=== PATIENT | male | born 1950 | race Caucasian/White ===

== ENCOUNTER 2017-02-04 08:59 | Emergency (ER) | payer OTHER ==
[~2017-02-04] VITALS: Ht 172.7 cm; Wt 74.8 kg
[2017-02-04 09:03] VITALS: BP 185/97; PULSE 79; RESP 18; TEMP 98.4; O2SAT 100
--- NOTE | 2017-02-04 09:21 | PD ---
HPI Chief Complaint: Fall Time Seen by Provider: 09:10 Travel History International Travel<30 days: No Contact w/Intl Traveler<30days: No Traveled to known affect area: No History of Present Illness HPI Patient is a 67-year-old male who presents to emergency room after he fell onto the floor 4-5 days ago. Reports that he picked up his dog and reports that he ended up loosing his balance. Patient reports that when he fell, he fell outside landing onto cement stairs. Patient fell onto the cement stairs in the left side of his face and also landed on his left elbow and left thigh. Patient reports that he is currently not on any anticoagulants. Patient denies loss of consciousness. Patient denies any headaches or dizziness at this time. Patient denies any neck pain. Reports that he has been keeping his wounds clean and has been applying bacitracin to his wounds, reports concerns as he has noticed increased weeping to his left elbow. Patient has been ambulating with normal gait, reports that his left leg feels much better, reports no pain with ambulation. Reports only concerns for his left elbow this time. PFSH Past Medical History Hypertension: Yes (NOT ON MEDS ) Tetanus Vaccination: Unknown Past Surgical History Surgical History: Unable to Obtain Social History Alcohol Use: Yes (12 [employer] DAILY) Tobacco Use: No Allergies-Medications (Allergen,Severity, Reaction): Coded Allergies: Darvon (Verified Allergy, Unknown, 02/04/17) Uncoded Allergies: ANTIHISTAMINE (Allergy, Severe, TACHYCARDIA, 02/04/17) Reported Meds & Prescriptions Reported Meds & Active Scripts Active Ibuprofen 600 Mg Tab 600 Mg PO Q6H PRN Bactrim DS (Sulfamethoxazole-Trimethoprim) 800-160 Mg Tab 1 Tab PO BID 10 Days Keflex (Cephalexin) 500 Mg Cap 500 Mg PO Q6H 10 Days Percocet (Oxycodone-Acetaminophen) 5-325 mg Tab 1 Tab PO Q6H PRN Review of Systems General / Constitutional: No: Fever Eyes: No: Visual changes HENT: No: Headaches, Lightheadedness Cardiovascular: No: Chest Pain or Discomfort Respiratory: No: Shortness of Breath Gastrointestinal: No: Abdominal Pain Genitourinary: No: Dysuria Musculoskeletal: Positive: Limited ROM (left elbow), Pain (left elbow) Skin: No Rash Neurologic: No: Weakness Psychiatric: No: Depression Endocrine: No: Polydipsia Hematologic/Lymphatic: No: Easy Bruising Physical Exam Narrative GENERAL: Well-nourished, well-developed patient. SKIN: Focused skin assessment warm/dry. HEAD: Normocephalic. Patient with healing abrasion to above left eyebrow, no signs of infection neuro exam: CN 2-12 grossly intact with no neurological deficits, no midline cervical tenderness EYES: No scleral icterus. No injection or drainage. NECK: Supple, trachea midline. No JVD or lymphadenopathy. CARDIOVASCULAR: Regular rate and rhythm without murmurs, gallops, or rubs. RESPIRATORY: Breath sounds equal bilaterally. No accessory muscle use. GASTROINTESTINAL: Abdomen soft, non-tender, nondistended. MUSCULOSKELETAL: No cyanosis, or edema. Patient with normal range of motion to the left and right shoulder bilaterally. Patient with pain with range of motion to left elbow, patient with open abrasion with drainage to his left elbow , normal range of motion to his left wrist, pulses intact, neurovascular intact. Right upper extremity: Normal exam Left lower extremity: Patient with normal range of motion to his left hip, left knee, left ankle. He does have bruising to his left hip, no signs of any fracture or open fracture Right lower extremity: Normal exam BACK: Nontender without obvious deformity. No CVA tenderness. Data Data Last Documented VS Vital Signs Date Time Temp Pulse Resp B/P Pulse Ox O2 Delivery O2 Flow Rate FiO2 02/04/17 09:03 98.4 79 18 185/97 100 Room Air Orders Elbow, Complete (4 Vws) (02/04/17 ) Tetanus/Diphtheria Tox Adult (Tetanus/Di (02/04/17 09:30) MDM Medical Decision Making Medical Screen Exam Complete: Yes Emergency Medical Condition: Yes Interpretation(s) Vital Signs Date Time Temp Pulse Resp B/P Pulse Ox O2 Delivery O2 Flow Rate FiO2 02/04/17 09:03 98.4 79 18 185/97 100 Room Air Differential Diagnosis Differential includes elbow infection, elbow fracture, facial contusion Narrative Course 67-year-old male who presents to emergency room with complaints of left-sided elbow pain. Patient reports that 4-5 days ago, he fell outside while at home while walking his dog. Reports that when he fell, he hit his forehead, his left elbow and his left thigh onto the concrete floor. Patient was not on any anticoagulants, denies any loss of consciousness, reports that his wounds have healed except for his left elbow which now appears infected. Reports concerns for his left elbow infection. Plan to obtain x-rays of his left elbow, will update tetanus. Will treat for cellulitis Last Impressions Elbow X-Ray 02/04/17 0000 Signed Impressions: Service Date/Time: Saturday, February 04, 2017 09:35 - CONCLUSION: Nuclear abnormality seen. There is some hypertrophic change at the lateral epicondyle. Kehinde Emery MD Signs and symptoms of when to return to ER was reviewed with patient. Understands need for wound check in 48 hours, he will return to ER as needed. Diagnosis Primary Impression: Cellulitis of left elbow Additional Impression: Facial abrasion Qualified Code: S00.81XA - Abrasion of face, initial encounter Patient Instructions: General Instructions Additional Instructions: Please take all antibiotics as prescribed Return to ER as needed Return to ER if symptoms worsen or persist Please follow up with your primary doctor or to the ER in 2 days for wound check Do not drive or operate heavy machinery while taking narcotic pain medications Med/Other Pt SpecificInfo: Prescription(s) given Scripts Ibuprofen 600 Mg Chr177 Mg PO Q6H PRN (Pain/Inflammation) #40 TAB Ref 0 Prov:Joie Pedraza DO 02/04/17 Sulfamethoxazole-Trimethoprim (Bactrim DS)800-160 Mg Tab1 Tab PO BID 10 Days Ref 0 Prov:Joie Pedraza DO 02/04/17 Cephalexin (Keflex)500 Mg Sme227 Mg PO Q6H 10 Days Ref 0 Prov:Joie Pedraza DO 02/04/17 Oxycodone-Acetaminophen (Percocet)5-325 mg Tab1 Tab PO Q6H PRN (PAIN) #10 TAB Ref 0 Prov:Joie Pedraza DO 02/04/17 Disposition: 01 DISCHARGE HOME Condition: Stable Joie Pedraza DO Feb 04, 2017 09:21 Joie Pedraza DO Feb 04, 2017 09:21
[2017-02-04] MEDS ORDERED: TETANUS/DIPHTHERIA TOXOID ADULT 0.5 ML VIAL IM ONE (09:30)
[2017-02-04] MEDS ORDERED: CEPH-460 PO (09:37)
[2017-02-04] MEDS ORDERED: BACT800T5 PO (09:37)
[2017-02-04] MEDS ORDERED: PERC5TAB12 PO (09:37)
[2017-02-04] MEDS ORDERED: IBUP-232 PO (09:38)
--- NOTE | 2017-02-04 09:55 | RADRPT ---
EXAM DATE/TIME: 02/04/2017 09:35 [facility] COMPARISON: No previous studies available for comparison. INDICATIONS : Left posterior elbow pain & weeping laceration after falling approximately 4 days ago. MEDICAL HISTORY : Hypertension. SURGICAL HISTORY : Knee surgery. ENCOUNTER: Initial ACUITY: 4 - 6 days PAIN SCORE: 10/10 LOCATION: Left posterior elbow FINDINGS: Multiple view examination of the left elbow demonstrates no soft tissue swelling, joint effusion, or fracture. There is mild hypertrophic change of the lateral epicondyle. The osseous structures are in normal alignment. Bony mineralization is normal. CONCLUSION: Nuclear abnormality seen. There is some hypertrophic change at the lateral epicondyle. Kehinde Emery MD on February 04, 2017 at 9:52 Board Certified Radiologist. This report was verified electronically.
== END 2017-02-04 10:24 | disposition home or self-care (01) ==
LOC: PHED 08:59
DX: L03.114 Cellulitis of left upper limb (principal); S00.81XA Abrasion of other part of head, initial encounter; Z23 Encounter for immunization; I10 Essential (primary) hypertension; W19.XXXA Unspecified fall, initial encounter; Y93.K9 Activity, other involving animal care; Y92.89 Other specified places as the place of occurrence of the external cause
CPT/HCPCS: 73080; 90714; 99284; G0008; 90471